=== PATIENT | female | born 2000 | race Caucasian/White ===

== ENCOUNTER 2020-02-20 17:34 | Inpatient (IN) | payer BC ==
[~2020-02-20] VITALS: Ht 162.6 cm; Wt 68.4 kg
[2020-02-20] MEDS ORDERED: CEPHALEXIN250 M1 PO (18:59)
[2020-02-20] MEDS ORDERED: IBU800 M1 PO (19:00)
[2020-02-20 19:05] LABS: BASO % 0.5 % (0.0-2.0); EOS # 0.1 (0.0-0.7); EOS % 1.3 % (0-4.0); GRAN # 3.5 (1.4-6.5); GRAN % 56.8 % (42.2-75.2); HEMOGLOBIN 11.8 g/dl (12.5-16.0); LYMPH # 1.6 (1.2-3.4); LYMPH % 26.4 % (20.0-51.0); MEAN CELL VOLUME 93 fl (80.0-100.0); MEAN CORPUSCULAR HEMOGLOBIN 31 pg (27.0-31.0); MEAN CORPUSCULAR HGB CONC 33 g/dl (33.0-37.0); MEAN PLATELET VOLUME 9.5 fl (7.4-10.4); MONO # 0.9 (0.1-0.6); MONO % 14.7 % (1.7-9.3); PLATELET COUNT 271 K/mm3 (130-400); RED BLOOD COUNT 3.84 M/mm3 (4.10-5.30); REDCELL DISTRIBUTION WIDTH-CV 14.1 % (11.5-14.5)
[2020-02-20 19:18] LABS: ALBUMIN 4.1 gm/dL (3.5-5.0); BILIRUBIN,TOTAL 2.2 mg/dL (0.0-1.0); C-REACTIVE PROTEIN 4.5 mg/dL (0.0-0.9); CALCIUM 8.8 mg/dL (8.4-10.2); CREATININE, serum 0.56 (0.52-1.25); POTASSIUM 3.5 mmol/L (3.4-5.0); TOTAL PROTEIN 10.3 gm/dL (6.4-8.2)
[2020-02-20 19:27] LABS: TROPONIN-I 0.034 ng/mL (0.000-0.035)
[2020-02-20 19:44] LABS: MONOSCREEN NEGATIVE
[2020-02-20 19:50] LABS: HEMATOCRIT 35.8 % (37.0-47.0)
[2020-02-20 21:29] LABS: INR 1.3 (0.8-3.0); PROTHROMBIN TIME 14.8 SECONDS (9.7-12.8)
[2020-02-21] VITALS (592 sets, daily range): BP systolic 120–129; BP diastolic 72–87; PULSE 83–125; TEMP 97.3–98.8; O2SAT 94–100
--- NOTE | 2020-02-21 01:03 | NUR ---
Received report from ED nurseClaudia.
--- NOTE | 2020-02-21 01:30 | NUR ---
Patient arrives to ICU room 1 via ED stretcher. Patient able to ambulate with standby assistance to the ICU bed. No fluids infusing at this time. Initial vitals within normal limits. Patient is A&Ox4 and denies any pain or discomfort. Patient arrives on room air, oxygen saturation mid to high 90s. No skin issues noted. Nakia notified of patient's arrival. Will continue to monitor.
[2020-02-21 02:45] LABS: MUCOUS Present /lpf; PH 6 (5-8); URINE APPEARANCE Hazy; URINE BACTERIA Rare /hpf; URINE BILIRUBIN Negative (NEGATIVE); URINE BLOOD Negative (NEGATIVE); URINE COLOR Yellow; URINE GLUCOSE Negative (NEGATIVE); URINE KETONE Negative (NEGATIVE); URINE LEUKOCYTE ESTERASE 2+ (NEGATIVE); URINE NITRATE Negative (NEGATIVE); URINE PROTEIN(semi-quant) Negative (NEGATIVE); URINE UROBILINOGEN >=4.0 mg/dL (NEGATIVE)
[2020-02-21 02:47] LABS: COLLECTION METHOD CLEAN CATCH
[2020-02-21 08:25] LABS: BASO % 0.2 % (0.0-2.0); EOS # 0.2 (0.0-0.7); EOS % 2.8 % (0-4.0); GRAN # 4.7 (1.4-6.5); GRAN % 72.5 % (42.2-75.2); HEMOGLOBIN 11.3 g/dl (12.5-16.0); LYMPH # 0.9 (1.2-3.4); LYMPH % 14.2 % (20.0-51.0); MEAN CELL VOLUME 94 fl (80.0-100.0); MEAN CORPUSCULAR HEMOGLOBIN 31 pg (27.0-31.0); MEAN CORPUSCULAR HGB CONC 33 g/dl (33.0-37.0); MEAN PLATELET VOLUME 9.6 fl (7.4-10.4); MONO # 0.7 (0.1-0.6); MONO % 10.1 % (1.7-9.3); PLATELET COUNT 249 K/mm3 (130-400); REDCELL DISTRIBUTION WIDTH-CV 14.1 % (11.5-14.5)
[2020-02-21 08:28] LABS: HEMATOCRIT 34.8 % (37.0-47.0)
[2020-02-21 08:43] LABS: CALCIUM 8.2 mg/dL (8.4-10.2); CREATININE, serum 0.55 (0.52-1.25); POTASSIUM 3.9 mmol/L (3.4-5.0)
[2020-02-21 08:58] LABS: TROPONIN-I 6 HR POST INITIAL 1.58 ng/mL (0.000-0.034)
[2020-02-21 10:14] LABS: ALBUMIN 3.5 gm/dL (3.5-5.0); BILIRUBIN UNCONJUGATED 0.7 mg/dL (0.0-1.1); BILIRUBIN,DIRECT 1.2 mg/dL (0.0-0.4); BILIRUBIN,TOTAL 1.9 mg/dL (0.0-1.0)
--- NOTE | 2020-02-21 14:00 | NUR ---
RECEIVED TRANSFER ORDERS FOR PATIENT TO GO TO MEDICAL STATUS. PATIENT BEING TRANSFERED TO ROOM 315 ON MEDICAL. GAVE REPORT TO JOEY BEAR. PATIENT TRANSFERED TO FLOOR VIA WHEELCHAIR. BELONGINGS SENT WITH PATIENT. CHART HANDED OFF TO MEDICAL FLOOR DRY PRESS OPERATOR HELPER.
--- NOTE | 2020-02-21 15:10 | NUR ---
Steamfitter Supervisor met with patient to discuss discharge planning. Patient's mother, Hasna (ph#[phone]) is at bedside. Patient lives in [facility] with a roommate and is a student at [employer]. Patient is from [place], [place]. Patient utilizes [facility] for primary care and obtains medications from [facility]. Patient does not use any DME and reports independence with ADLS. Patient does not have Advance Directives. If discharged over the weekend, she may spend some time at home with her parents before returning home with her roommate. SW contacted the [facility] [employer] [facility] office of student life to notify them of admit. PRERNA will continue to follow as needed.
--- NOTE | 2020-02-21 17:52 | NUR ---
PT UP INDEPENDENTLY AMBULATING IN HALLS WITH MOM.
--- NOTE | 2020-02-21 17:52 | NUR ---
DR BURKS SIGNED OFF ON PT. NOTIFIED ARNULFO ANAYA PLAN ON DISCHARGE TOMMORROW IN AM.
--- NOTE | 2020-02-21 18:47 | NUR ---
REPORT TO LOU COOK.
--- NOTE | 2020-02-21 19:58 | NUR ---
Resting in bed. Assessment complete. Lungs clear. Heart sounds normal. Bowels active x4. Pulses present throughout. No edema noted. IV left AC infusing without complications. Denies pain. Denies needs at this time. Call light in reach.
[2020-02-21 22:49] LABS: EBV NUCLEAR ANTIGEN IGG Negative (())
[2020-02-21 23:08] LABS: EBV EARLY ANTIGEN IGG Negative (()); EBV IGM AB Equivocal (())
--- NOTE | 2020-02-22 00:14 | NUR ---
Resting in bed. Denies needs. Call light in reach.
[2020-02-22 03:38] VITALS: BP 123/73; PULSE 82; TEMP 98.3
--- NOTE | 2020-02-22 04:01 | NUR ---
Resting in bed. Denies needs. Denies pain. Call light in reach.
--- NOTE | 2020-02-22 05:08 | NUR ---
Patient had uneventful night. Resting in bed this AM. Call light in reach.
[2020-02-22 06:27] LABS: BASO % 0.4 % (0.0-2.0); EOS # 0.2 (0.0-0.7); EOS % 4.4 % (0-4.0); GRAN # 3.1 (1.4-6.5); GRAN % 61.9 % (42.2-75.2); HEMOGLOBIN 11.3 g/dl (12.5-16.0); LYMPH # 1.1 (1.2-3.4); LYMPH % 21.8 % (20.0-51.0); MEAN CELL VOLUME 93 fl (80.0-100.0); MEAN CORPUSCULAR HEMOGLOBIN 31 pg (27.0-31.0); MEAN CORPUSCULAR HGB CONC 33 g/dl (33.0-37.0); MEAN PLATELET VOLUME 10.6 fl (7.4-10.4); MONO # 0.6 (0.1-0.6); MONO % 10.9 % (1.7-9.3); PLATELET COUNT 198 K/mm3 (130-400); RED BLOOD COUNT 3.66 M/mm3 (4.10-5.30); REDCELL DISTRIBUTION WIDTH-CV 14.2 % (11.5-14.5)
[2020-02-22 06:30] LABS: ALBUMIN 3.1 gm/dL (3.5-5.0); BILIRUBIN,TOTAL 1.1 mg/dL (0.0-1.0); CALCIUM 7.8 mg/dL (8.4-10.2); CREATININE, serum 0.53 (0.52-1.25); POTASSIUM 3.7 mmol/L (3.4-5.0); TOTAL PROTEIN 8.1 gm/dL (6.4-8.2)
[2020-02-22 06:47] LABS: BILIRUBIN UNCONJUGATED 0.3 mg/dL (0.0-1.1); BILIRUBIN,DIRECT 0.7 mg/dL (0.0-0.4)
--- NOTE | 2020-02-22 07:18 | NUR ---
Report given to JOEY Doty
[2020-02-22 08:00] VITALS: BP 124/86; PULSE 72; TEMP 98.4
--- NOTE | 2020-02-22 08:44 | NUR ---
Pt assessment completed and charted. Medications administered per jun. pt sitting in bed, on room air, A&O, independent in room, SCD's not on d/t pt ambulating frequently. Pt on tele, NS. LS cta, BS activeX4, pulses strong bilaterally, no edema noted. Pt denies chest pain, dizziness, N/V/D, abdominal pain, numbness/tingling, general pain. LAC IV w/ NS @ 125ml/hr running w/o issues. No further needs expressed at this time. Call light within reach, breakfast tray set up for pt.
[2020-02-22] MEDS ORDERED: MOTRIN 600600 MG/TAB PO (10:22)
--- NOTE | 2020-02-22 11:15 | NUR ---
Pt discharge instructions discussed and reviewed w/ pt who verbalized understanding, all questions answered. LAC IV dc'd w/ catheter tip intact. No further issues noted. Pt escorted out via WC w/ mom at side.
== END 2020-02-22 11:45 | disposition home or self-care (01) | DRG 316 ==
LOC: COL.ER 17:34 → ICU 22:26 → MEDICAL 02-21 16:30
PROVIDERS: Emergency Medicine; Nurse Practitioner Family; Student in an Organized Health Care Education/Training Program; ADMIT Hospitalist
DX: I31.9 Disease of pericardium, unspecified (principal); J02.9 Acute pharyngitis, unspecified; Z20.828 Contact with and (suspected) exposure to other viral communicable diseases; R00.0 Tachycardia, unspecified; R79.89 Other specified abnormal findings of blood chemistry; B34.9 Viral infection, unspecified; R74.8 Abnormal levels of other serum enzymes; Z79.891 Long term (current) use of opiate analgesic
CPT/HCPCS: 99222-AI; 99233-AI; 99239; J7030; Q9967

== ENCOUNTER → 2020-03-24 | Outpatient (CLI) | payer BC ==
[2020-03-24] VITALS (13 sets, daily range): BP systolic 119–134; BP diastolic 78–95; PULSE 70–89
[~2020-03-24] VITALS: Ht 162.6 cm; Wt 63.5 kg
[~2020-03-24] MED LIST: CEPHALEXIN250 M1 PO; CEPHALEXIN500 M1 PO; COLCRYS0.6 MG PO; IBU800 M1 PO; MOTRIN 600600 MG/TAB PO
--- NOTE | 2020-03-24 08:45 | NUR ---
pt to ultrasound via ambulation, pt positioned supine on table. Monitors applied.
--- NOTE | 2020-03-24 09:05 | NUR ---
Dr Liao into room.
--- NOTE | 2020-03-24 09:11 | NUR ---
Specimens obtained by Dr Liao and placed in formalin. Specimen labeled.
--- NOTE | 2020-03-24 11:06 | NUR ---
Pt discharge instructions gone over with pt. Pt verbalized understanding of instructions. Copy given to pt. Int removed from right hand 2x2 and coban to site, pressure per coban. Int catheter tip intact.
== END ==
LOC: COL.RAD 08:05
DX: R94.5 Abnormal results of liver function studies (principal); I31.9 Disease of pericardium, unspecified

== ENCOUNTER → 2021-09-16 | Outpatient (CLI) | payer BC | LOC: COL.RAD 09:14 | DX: Z00.00 Encounter for general adult medical examination without abnormal findings (principal); K75.4 Autoimmune hepatitis; K74.00 Hepatic fibrosis, unspecified ==

== ENCOUNTER → 2022-06-14 | Outpatient (CLI) | payer BC | LOC: COL.RAD 07:19 | DX: Z00.00 Encounter for general adult medical examination without abnormal findings (principal); K75.4 Autoimmune hepatitis; K74.00 Hepatic fibrosis, unspecified ==

== ENCOUNTER → 2023-05-19 | Outpatient (CLI) | payer BC | LOC: COL.RAD 07:03 | DX: K75.4 Autoimmune hepatitis (principal) ==